=== PATIENT | female | born 1960 | race Caucasian/White ===

== ENCOUNTER 2018-06-30 05:51 | Inpatient (IN) | payer BC ==
[~2018-06-30] VITALS: Ht 167.6 cm; Wt 65.9 kg
[~2018-06-30 05:51] MED LIST: No meds per pt.
[2018-06-30] MEDS ORDERED: LACTATED RINGERS 1,000 ML IV SCH (06:20)
[2018-06-30] MEDS ORDERED: THROMBIN 5,000 UNIT VIAL TP ONE (06:38)
[2018-06-30] MEDS ORDERED: TRIAMCINOLONE ACETONIDE 40 MG/ML, 1ML ONE (06:38)
[2018-06-30] MEDS ORDERED: VANCOMYCIN 500 MG ONE (06:39)
[2018-06-30] MEDS ORDERED: VANCOMYCIN 1,000 MG ONE (06:39)
[2018-06-30] MEDS ORDERED: LIDOCAINE/MPF 2%-EPI 1:200K, 20 ML ONE (06:39)
[2018-06-30] MEDS ORDERED: EPINEPHRINE 1 MG/ML, 1ML ONE (06:40)
[2018-06-30] MEDS ORDERED: LIDOCAINE/PF 0.5% ,50ML ONE (06:40)
[2018-06-30] MEDS ORDERED: MIDAZOLAM 1 MG/ML, 2ML ONE (06:54)
[2018-06-30] MEDS ORDERED: PROPOFOL 150 ML ONE (06:55)
[2018-06-30] MEDS ORDERED: FENTANYL PF 250 MCG/5ML ONE (06:55)
[2018-06-30] MEDS ORDERED: GABAPENTIN 300 MG CAPSULE PO ONE (07:30)
[2018-06-30] MEDS ORDERED: ACETAMINOPHEN 500 MG TABLET PO ONE (07:30)
[2018-06-30] MEDS ORDERED: FAMOTIDINE 20 MG TABLET PO ONE (07:30)
[2018-06-30] MEDS ORDERED: OxyconTIN ER 10 MG TAB.ER PO ONE (07:30)
[2018-06-30] MEDS ORDERED: CEFAZOLIN 1,000 MG ONE ×2 (07:50)
[2018-06-30] MEDS ORDERED: DEXAMETHASONE 4 MG/ML, 1ML ONE ×3 (08:03)
[2018-06-30] MEDS ORDERED: PROMETHAZINE 25 MG/ML, 1ML IV PRN (08:30)
[2018-06-30] MEDS ORDERED: OXYcodone 5 MG/5 ML ORAL.SOL UDC PO PRN (08:30)
[2018-06-30] MEDS ORDERED: LABETALOL 5 MG/ML SYRINGE IV PRN (08:30)
[2018-06-30] MEDS ORDERED: hydrALAzine 20 MG/ML, 1ML IV PRN (08:30)
[2018-06-30] MEDS ORDERED: ONDANSETRON 2MG/ML, 2ML IV PRN ×2 (08:30→13:00)
[2018-06-30] MEDS ORDERED: MEPERIDINE/PF 25MG/0.5ML IVPush PRN (08:30)
[2018-06-30] MEDS ORDERED: ONDANSETRON 2MG/ML, 2ML ONE (09:47)
[2018-06-30] MEDS ORDERED: PROPOFOL 10 MG/ML, 20ML ONE (09:47)
[2018-06-30] MEDS ORDERED: METOPROLOL 1 MG/ML, 5ML ONE (10:16)
[2018-06-30] MEDS ORDERED: FENTANYL PF 100 MCG/2ML ONE (10:36)
[2018-06-30] MEDS ORDERED: HYDROmorphone 1 MG/ML, 1ML ONE (10:36)
[2018-06-30] MEDS: FENTANYL PF 100 MCG/2ML IV PRN ×2 (10:38→10:45)
[2018-06-30] MEDS ORDERED: METHOCARBAMOL 1,000 MG in DEXTROSE 5% 100 ML IV ONE (11:00)
[2018-06-30] MEDS: HYDROmorphone 2 MG/ML, 1ML IVPush PRN ×2 (11:05→11:20)
[2018-06-30] MEDS ORDERED: HYDROcodone/APAP 5/325 TABLET PO PRN ×2 (12:30→13:30)
[2018-06-30] MEDS ORDERED: PROMETHAZINE 25 MG/ML, 1ML IM PRN (12:30)
[2018-06-30] MEDS ORDERED: HYDROcodone/APAP 10/325 MG TABLET PO PRN (12:30)
[2018-06-30] MEDS ORDERED: BISACODYL 10 MG SUPP PR PRN (12:30)
[2018-06-30] MEDS ORDERED: MAGNESIUM HYDROXIDE 8%, 30ML UDC PO PRN (12:30)
[2018-06-30] MEDS ORDERED: morphine SULFATE 10 MG/ML, 1ML IV PRN (13:00)
[2018-06-30] MEDS ORDERED: SUCCINYLCHOLINE 20 MG/ML, 10ML ONE (15:03)
[2018-06-30 15:15] VITALS: BP 146/88
[2018-06-30] MEDS: CEFAZOLIN PMX 1GM/50ML 50 ML IVPB SCH (16:03)
[2018-06-30] MEDS: D5%-0.9% NACL+KCL 20MEQ 1,000 ML IV SCH (16:04)
[2018-06-30] MEDS: HYDROcodone/APAP 10/325 MG TABLET PO PRN ×2 (16:42→20:44)
[2018-06-30 18:51] VITALS: BP 152/93
[2018-06-30] MEDS: METHOCARBAMOL 750 MG in DEXTROSE 5% 100 ML IV SCH (19:47)
[2018-06-30] MEDS: SENNA/DOCUSATE TABLET PO SCH (20:44)
[2018-07-01] MEDS: CEFAZOLIN PMX 1GM/50ML 50 ML IVPB SCH (00:30)
[2018-07-01] MEDS: HYDROcodone/APAP 10/325 MG TABLET PO PRN ×3 (00:30→11:50)
[2018-07-01 01:33] VITALS: BP 146/81
[2018-07-01] MEDS: D5%-0.9% NACL+KCL 20MEQ 1,000 ML IV SCH (03:34)
[2018-07-01] MEDS: METHOCARBAMOL 750 MG in DEXTROSE 5% 100 ML IV SCH ×2 (03:34→12:09)
[2018-07-01] MEDS: SENNA/DOCUSATE TABLET PO SCH (08:14)
[2018-07-01 08:41] VITALS: BP 153/83
[2018-07-01 11:41] VITALS: BP 152/88
[2018-07-01] MEDS ORDERED: HYDR-3307 PO (11:50)
[2018-07-02] MEDS ORDERED: METHOCARBAMOL 750 MG TABLET PO SCH (19:00)
== END 2018-07-01 12:35 | disposition home or self-care (01) | DRG 472 ==
LOC: ORIP 05:51 → 4NOR 12:09 → DCLOUNGE 07-01 12:22
PROVIDERS: ADMIT Orthopaedic Surgery Orthopaedic Surgery of the Spine; ATTEND Orthopaedic Surgery Orthopaedic Surgery of the Spine
PROC: 0RB30ZZ Excision of Cervical Vertebral Disc, Open Approach (ICD-10-PCS; 2018-06-30)
PROC: 4A11X4G Monitoring of Peripheral Nervous Electrical Activity, Intraoperative, External Approach (ICD-10-PCS; 2018-06-30)
PROC: 0RG20K0 Fusion of 2 or more Cervical Vertebral Joints with Nonautologous Tissue Substitute, Anterior Approach, Anterior Column, Open Approach (ICD-10-PCS; principal; 2018-06-30 07:30)
DX: M48.02 Spinal stenosis, cervical region (principal); M47.12 Other spondylosis with myelopathy, cervical region; M47.22 Other spondylosis with radiculopathy, cervical region
CPT/HCPCS: 72040; 72050; 95938; 95941; C1713; G0378; J0171; J0690; J1100; J1170; J2001; J2250; J2405; J2550; J2704; J3010; J3301; J3370; J3490; C1762; J0330; J2800; J3480; J7120